=== PATIENT | female | born 1955 | race Caucasian/White ===

== ENCOUNTER 2016-10-23 21:10 | Emergency (ER) | payer OTHER ==
[~2016-10-23] VITALS: Ht 152.4 cm; Wt 59.9 kg
[~2016-10-23 21:10] MED LIST: CHANTIX1 MG PO; PRILOSEC40 MG PO; ZOCOR40 MG PO
[2016-10-23 21:20] VITALS: BP 152/88
--- NOTE | 2016-10-23 22:01 | NUR ---
PT TAKEN TO OF Addendum: 10/23/16 at 2202 by ROBBIEO PT TAKEN TO [facility]
--- NOTE | 2016-10-23 22:12 | NUR ---
Dr. Avendaño evaluating patient
--- NOTE | 2016-10-23 22:25 | NUR ---
PT TAKEN TO CT
--- NOTE | 2016-10-23 22:33 | NUR ---
PT RETURN FROM CT
[2016-10-23 22:51] VITALS: BP 145/83
--- NOTE | 2016-10-23 22:51 | NUR ---
Patient discharged with v/s stable PER DR ROBINS. Written and verbal after care instructions given and explained PER DR ROBINS. Patient verbalized understanding. Ambulatory with steady gait. All questions addressed prior to discharge. Advised to follow up with PMD. D/C NOTE ONLY.
== END 2016-10-23 22:51 | disposition home or self-care (01) ==
LOC: MED 21:10
DX: R51 Headache (principal)